=== PATIENT | female | born 2000 | race Caucasian/White ===

== ENCOUNTER 2022-09-11 23:34 | Emergency (ER) | payer OTHER, SELFPAY ==
--- NOTE | ~2022-09-11 | US_ITS ---
EXAMINATION: US PELVIS CLINICAL INFORMATION: Lower abdominal pain. Ovarian cyst. COMPARISON: 09/12/2022 TECHNIQUE: Ultrasound of the pelvis is performed using both transabdominal and transvaginal transducers along with Doppler. Transvaginal imaging is performed due to inadequate visualization transabdominally. FINDINGS: Uterus: The uterus is anteverted and measures 9.6 x 5 x 7.2 cm. The double wall endometrial thickness is [address] The uterus is smooth in contour and has normal myometrial echogenicity. No visible fibroid. Adnexa: Both ovaries are visualized. There is normal color flow to the adnexa. There is no ovarian torsion. Small volume of pelvic free fluid. Normal arterial and venous spectral waveforms are present bilaterally. Right ovary measures 3 x 1.7 x 1.5 cm. Left ovary measures 5.9 x 5.3 x 4.4 cm. Complex ovarian cyst measures 4.8 x 3.4 x 3.6 cm. Internal echoes are present. US/US pelvic and transvaginal IMPRESSION: No evidence of active ovarian torsion at this time. There is a complex left ovarian cyst which may represent a hemorrhagic cyst. Small volume of pelvic free fluid. No specific follow-up recommended.
--- NOTE | ~2022-09-11 | CT_ITS ---
EXAMINATION: CT ABDOMEN AND PELVIS WITHOUT CONTRAST CLINICAL INFORMATION: Diffuse abdominal pain. COMPARISON: None available. TECHNIQUE: Multidetector volumetric imaging was performed from the superior aspect of the liver through the pubic symphysis. Sagittal and coronal reformatted images were obtained on the technologist's workstation. This CT examination was performed using dose optimization techniques as appropriate, variously including the following: *Automated exposure control *Adjustment of mA and/or kV according to patient size (this includes techniques or standardized protocols for targeted exams where dose is matched to indication/reason for exam; i.e. extremities or head) *Use of iterative reconstruction technique DLP: 397 mGy-cm FINDINGS: LUNG BASES: The visualized lung bases are unremarkable. LIVER, GALLBLADDER, AND BILIARY TREE: The liver is normal in size, shape, and attenuation. No focal hepatic lesion or biliary ductal dilatation is present. The gallbladder is contracted with no evidence of radiopaque gallstones, gallbladder wall thickening, or obvious pericholecystic inflammatory changes. PANCREAS: Unremarkable. SPLEEN: Unremarkable. ADRENAL GLANDS: Unremarkable. KIDNEYS AND URETERS: The kidneys are normal in size, shape, and attenuation. No hydronephrosis, hydroureter, or calculi seen. No perinephric stranding. BLADDER: Unremarkable. GASTROINTESTINAL TRACT: The stomach is unremarkable. Normal caliber small bowel. No obstruction. Normal appendix. No colonic wall thickening. Mild inflammation in the pelvis this does not appear associated with the colon. No free air. ABDOMINAL WALL: No significant hernia is appreciated. LYMPH NODES: Normal. VASCULAR: Unremarkable. PELVIC VISCERA: Anteverted uterus with IUD in place. Inflammatory change in the pelvis with small amount of layering free fluid. There is a left adnexal 4.4 cm hypoattenuating lesion which measures higher than simple fluid. Layering high attenuation internally. OSSEOUS STRUCTURES: No acute or suspicious osseous abnormality. CT/CT abdomen pelvis wo IV con IMPRESSION: 1. Inflammatory changes in the pelvis with small amount of layering free fluid. There is a 4.4 cm hypoattenuating lesion in the left adnexa which measures higher than simple fluid. This could represent a hemorrhagic cyst. This could be further evaluated with pelvic ultrasound. 2. Otherwise no acute finding in the abdomen or pelvis. Fleischner guidelines were followed.
[2022-09-12 00:22] VITALS: BP 107/64; PULSE 83; RESP 16; TEMP 36.5; O2SAT 98; BMI 23.2
--- NOTE | 2022-09-12 00:42 | ED_ITS ---
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 Patient does not feel more anxious lately Related Data Previous Rx's Medication Instructions Recorded cefuroxime axetil 250 mg tablet 250 mg PO BID 7 days #14 tabs 09/12/22 ibuprofen 600 mg tablet 600 mg PO Q6H PRN fever or pain 09/12/22 #30 tabs Allergies Allergy/AdvReac Type Severity Reaction Status Date / Time No Known Allergies Allergy Verified 09/12/22 00:30 Review of Systems Review of Systems Yes all other systems are reviewed and are negative [facility] Past Medical History Attestation statement: The following information was validated with the patient. Social History Social History Alcohol intake: current Alcohol intake frequency: holidays/special occasions only Alcohol type: hard liquor Smoked in Last 30 Days: Yes Use of substances other than those prescribed or required for medical reasons: Yes Substance Use Type: Marijuana Substance Use Frequency: Socially Advance Directives: No Advance Directives Information Provided: Yes Patient : No Physical Exam ED Vital Signs: Vital Signs - 24 hr 09/12/22 00:22 Temperature 97.7 F Pulse Rate 83 Respiratory Rate 16 Blood Pressure 107/64 Pulse Oximetry 98 Oxygen Delivery Method Room Air BMI result Body Mass Index 23.2 Appearance: Alert. Oriented X3. No acute distress. Eyes: No pallor or icterus ENT: Pharynx normal. Oral Mucosa moist Neck: Normal inspection. Neck supple. CVS: Normal heart rate and rhythm. Pulses normal. Respiratory: No respiratory distress. Equal air entry bilateral, no wheezing/rales/rhonchi Abdomen: Soft mild tenderness left upper quadrant and suprapubic area no rebound tenderness or guarding Bowel sounds are present, no mass palpable, no CVA tenderness Skin: Skin warm and dry. Normal skin color. Normal skin turgor. Extremities: No lower extremity edema. No calf tenderness superficial lymph nodes left inguinal area no signs infection Neuro: Oriented X 3. No motor deficit. No sensory deficit.No cerebellar signs Medical Decision Making Medical Decision Making [facility] Narrative: Patient nonspecific abdominal pain for last 3 weeks likely IBS/ovarian cyst will give her Bentyl do the basics CT scan Patient's CT scan showed 4.5 cm left ovarian cyst likely hemorrhagic with free fluid in the pelvis. H&H stable will do ultrasound to confirm. Lab Data [facility] Lab Attestation statement: I reviewed the patient's lab results. 09/12/22 00:41 09/12/22 00:41 Labs: Lab Results 09/12/22 09/12/22 09/12/22 Range/Units 00:41 00:41 00:41 WBC 11.4 H (4.8-10.8) X10*3/uL RBC 3.65 L (4.20-5.50) X10*6/uL Hgb 11.0 L (12.0-16.0) g/dl Hct 32.8 L (37.0-47.0) % MCV 89.9 (80.0-98.0) fL MCH 30.1 (27.0-33.0) pg MCHC 33.5 (31.0-35.0) g/dl RDW 12.0 (11.0-16.0) % Plt Count 220 (160-400) X10*3/uL MPV 9.3 L (9.4-12.3) fL Immature Gran % (Auto) 0.4 (0.0-0.4) % Neut % (Auto) 67.0 (45-73) % Lymph % (Auto) 22.3 (20-40) % Rowan % (Auto) 7.7 (2-11) % Eos % (Auto) 2.2 (0-4) % Baso % (Auto) 0.4 (0-2) % Lymph # (Auto) 2.6 (1.2-4.9) X10*3/uL Rowan # (Auto) 0.9 (0.1-1.2) X10*3/uL Eos # (Auto) 0.3 (0.0-0.4) X10*3/uL Baso # (Auto) 0.1 (0.0-0.2) X10*3/uL Abs Immat Gran (auto) 0.05 H (0.00-0.03) X10*3/uL Absolute Neuts (auto) 7.6 (2.0-8.3) x10*3/uL Absolute Nucleated RBC 0.000 (0.0-0.012) X10*3/uL Nucleated RBC % (auto) 0.0 (0.0-0.2) /100WBC Sodium 140 (135-145) mmol/L Potassium 3.8 (3.3-5.1) mmol/L Chloride 106 (96-108) mmol/L Carbon Dioxide 27 (22-29) mmol/L Anion Gap 11 L (12-20) BUN 11 (9-16) mg/dL Creatinine 0.80 (0.5-1.4) mg/dL Estim Creat Clear Calc 91.2 Estimated GFR > 60 Random Glucose 92 (60-115) mg/dL Calcium 8.3 L (8.4-10.2) mg/dL Total Bilirubin 0.2 (0.0-1.0) mg/dL AST 11 (5-31) U/L ALT 6 (0-31) U/L Alkaline Phosphatase 57 (39-117) U/L Total Protein 6.4 L (6.5-8.0) g/dL Albumin 3.3 L (3.5-5.0) g/dL Urine Color Yellow Urine Appearance Clear Urine pH 6.0 (5.0-9.0) Ur Specific [place] 1.025 (1.005-1.025) Urine Protein Negative (Neg-Trace) mg/dL Urine Glucose (UA) Negative (Negative) mg/dL Urine Ketones Negative (Negative) mg/dL Urine Blood Negative (Negative) Urine Nitrite Negative (Negative) Ur Leukocyte Esterase Trace H (Negative) Urine RBC 0-2 (0-2) /HPF Urine WBC 6-10 H (0-5) /HPF Ur Squamous Epith Cells 6-10 (0-2) /HPF Urine Bacteria 1+ (None Seen) Hyaline Casts 0-2 (0-2) /LPF Urine Test (NEGATIVE) 09/12/22 Range/Units 00:41 WBC (4.8-10.8) X10*3/uL RBC (4.20-5.50) X10*6/uL Hgb (12.0-16.0) g/dl Hct (37.0-47.0) % MCV (80.0-98.0) fL MCH (27.0-33.0) pg MCHC (31.0-35.0) g/dl RDW (11.0-16.0) % Plt Count (160-400) X10*3/uL MPV (9.4-12.3) fL Immature Gran % (Auto) (0.0-0.4) % Neut % (Auto) (45-73) % Lymph % (Auto) (20-40) % Rowan % (Auto) (2-11) % Eos % (Auto) (0-4) % Baso % (Auto) (0-2) % Lymph # (Auto) (1.2-4.9) X10*3/uL Rowan # (Auto) (0.1-1.2) X10*3/uL Eos # (Auto) (0.0-0.4) X10*3/uL Baso # (Auto) (0.0-0.2) X10*3/uL Abs Immat Gran (auto) (0.00-0.03) X10*3/uL Absolute Neuts (auto) (2.0-8.3) x10*3/uL Absolute Nucleated RBC (0.0-0.012) X10*3/uL Nucleated RBC % (auto) (0.0-0.2) /100WBC Sodium (135-145) mmol/L Potassium (3.3-5.1) mmol/L Chloride (96-108) mmol/L Carbon Dioxide (22-29) mmol/L Anion Gap (12-20) BUN (9-16) mg/dL Creatinine (0.5-1.4) mg/dL Estim Creat Clear Calc Estimated GFR Random Glucose (60-115) mg/dL Calcium (8.4-10.2) mg/dL Total Bilirubin (0.0-1.0) mg/dL AST (5-31) U/L ALT (0-31) U/L Alkaline Phosphatase (39-117) U/L Total Protein (6.5-8.0) g/dL Albumin (3.5-5.0) g/dL Urine Color Urine Appearance Urine pH (5.0-9.0) Ur Specific [place] (1.005-1.025) Urine Protein (Neg-Trace) mg/dL Urine Glucose (UA) (Negative) mg/dL Urine Ketones (Negative) mg/dL Urine Blood (Negative) Urine Nitrite (Negative) Ur Leukocyte Esterase (Negative) Urine RBC (0-2) /HPF Urine WBC (0-5) /HPF Ur Squamous Epith Cells (0-2) /HPF Urine Bacteria (None Seen) Hyaline Casts (0-2) /LPF Urine Test NEGATIVE (NEGATIVE) Radiology Impression Discussion of test interpretation with radiology: I have reviewed the radiologist's reading. Radiologist Impression: RDER #: [id number] CT/CT abdomen pelvis wo IV con IMPRESSION: 1.? Inflammatory changes in the pelvis with small amount of layering free fluid. There is a 4.4 cm hypoattenuating lesion in the left adnexa which measures higher than simple fluid. This could represent a hemorrhagic cyst. This could be further evaluated with pelvic ultrasound. 2.? Otherwise no acute finding in the abdomen or pelvis. ? Fleischner guidelines were followed. Medications Administered Discontinued Medications Generic Name Dose Route Start Last Admin Trade Name Freq PRN Reason Stop Dose Admin Dicyclomine HCl 20 mg 09/12/22 00:55 09/12/22 01:20 Dicyclomine Hcl 10 Mg Capsule PO 09/12/22 00:56 20 mg ONCE ONE Administration Discharge Plan Discharge Clinical Impression: Ovarian cyst, UTI (urinary tract infection) Patient Disposition: Still a Patient Instructions: Ovarian Cyst (ED), Urinary Tract Infection in Women (DC) Additional Instructions: Drink plenty of fluids Ibuprofen for pain Follow-up with seat trimmer if pain continues or gets worse Prescriptions: New cefuroxime axetil 250 mg tablet 250 mg PO BID 7 Days Qty: 14 0RF ibuprofen 600 mg tablet 600 mg PO Q6H PRN (Reason: fever or pain) Qty: 30 0RF
[2022-09-12 00:46] LABS: MANUAL DIFF FLAG NO
[2022-09-12 00:47] LABS: Basophils Absolute Auto 0.1 X10*3/uL (0.0-0.2); Basophils Percent Auto 0.4 % (0-2); Eosinophils Absolute Auto 0.3 X10*3/uL (0.0-0.4); Eosinophils Percent Auto 2.2 % (0-4); Hematocrit 32.8 % (37.0-47.0); Imm Gran Abs Auto 0.05 X10*3/uL (0.00-0.03); Imm Gran Pct Auto 0.4 % (0.0-0.4); Lymphocytes Absolute Auto 2.6 X10*3/uL (1.2-4.9); Lymphocytes Percent Auto 22.3 % (20-40); Mean Corpuscular HGB Conc 33.5 g/dl (31.0-35.0); Mean Corpuscular Hemoglobin 30.1 pg (27.0-33.0); Mean Corpuscular Volume 89.9 fL (80.0-98.0); Mean Platelet Volume 9.3 fL (9.4-12.3); Monocytes Absolute Auto 0.9 X10*3/uL (0.1-1.2); Monocytes Percent Auto 7.7 % (2-11); Neutrophils Absolute Auto 7.6 x10*3/uL (2.0-8.3); Platelet Count 220 X10*3/uL (160-400); Red Blood Count 3.65 X10*6/uL (4.20-5.50); SCAN SMEAR FLAG 1; White Blood Count 11.4 X10*3/uL (4.8-10.8)
[2022-09-12 00:48] LABS: Appearance Urine Clear; Color Urine Yellow; Glucose Urine UA Negative (Negative); Leukocyte Esterase Urine Trace (Negative); Nitrite Urine Negative (Negative); Specific Gravity - Urine 1.025 (1.005-1.025); UMIC TRIGGER UACC YES; Urine Blood Negative (Negative); Urine Ketones Negative (Negative); Urine Protein Negative (Neg-Trace)
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
--- OUTSIDE RECORDS SUMMARY | 2022-09-12 00:49 | XMS_ITS | Continuity of Care Document ---
Author Name Unknown Organization [facility] Address [address] [place] [address]- Care Team Providers Care Material Movers Name Role Phone Not on Staff, PCP Primary Care Physician Unavail able Encounter [facility] Date(s): 10/01/20 - 10/31/20 [facility] [address] [address]- Allergies, Adverse Reactions, Alerts Substance Reaction Severity [...]
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
--- OUTSIDE RECORDS SUMMARY | 2022-09-12 00:49 | XMS_ITS | Continuity of Care Document ---
Author Name Unknown Organization [facility] Address [address] [place] [address]- Care Team Providers Care Environmental Inspector Name Role Phone Not on Staff, PCP Primary Care Physician Unavail able [facility]): 07/24/20 - 08/23/20 [facility] [address] [address]- Attending Physician: Angeli Kirkpatrick Admitting Physician: AdmAngeli aparicio Referring Physician: AdmtrAngeli Allergies, Adverse Reactions, Alerts [...] 0 Refills, Maintenance, 07/13/19 12:43:00 EST, Tablet, [facility]/pharmacy #[id number], 1 tablet By Mouth Daily, 160, cm, 07/13/19 12:29:00 EST, Height, 82.5, kg, 03/23/19 10:51:00 EDT, Dry Weight Start Date: 07/13/19 Status: Ordered Multivitamins with Folic Acid 1 mg oral tablet 1 tablet, By Mouth, Daily, # 90 tablet, 3 Refills, Maintenance, 07/09/20 17:07:00 EST, Tablet, [facility]/pharmacy #[id number], Partial fill upon patient request if the prescription is for a schedule II opioid drug., 1 tablet By Mouth Daily, 160, cm, 05/16/20 9:41... Start Date: 07/09/20 Status: Ordered Multivitamins with Folic Acid 1 [...]
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
--- OUTSIDE RECORDS SUMMARY | 2022-09-12 00:49 | XMS_ITS | Continuity of Care Document ---
Author Name Unknown Organization [facility] Address Unknown Care Team Providers Care Child Nutrition Director Name Role Phone Not on Staff, PCP Primary Care Physician Unavail able [place] [facility] [place] 12/15/20 - 02/25/21 [facility] Attending Physician: Eufemia Duval NP Admitting Physician: Eufemia Duval NP Allergies, Adverse Reactions, Alerts Substance Reaction Severity Status NKA Active Immunizations Given and Recorded Vaccine Date Status Refusal Reason SARS-CoV-2 (COVID-19) [id number] vaccine 02/25/21 G iven tetanus/diphtheria/pertussis, acel(Tdap) 01/21/21 [...] tablet, 1 Refills, Maintenance, 08/25/20 14:50:00 EDT, [facility]/pharmacy #[id number], Partial fill upon patient request if the prescription is for a schedule II opioid drug., 160, cm, 08/25/20 14:13:00 EDT, Height,... Start Date: 08/25/20 Status: Ordered ferrous sulfate 325 mg oral enteric coated tablet 325 mg, 1, tablet, By Mouth, Daily, # 90 tablet, Refills 1, Tot. Refills 1, Maintenance, 02/04/21 13:19:00 EDT, Route to Pharmacy Electronically, [facility]/pharmacy #[id number], Partial fill upon patient requestif the prescription is for a schedule II opioid rommel... Start Date: 02/04/21 Status: Ordered Multivitamins with Folic Acid 1 mg oral tablet 1 tablet, By Mouth, Daily, # 30 tablet, 8 Refills, Maintenance, 02/04/21 13:19:00 EDT, Tablet, [facility]/pharmacy #[id number], Partial fill upon patient request [...]
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
--- OUTSIDE RECORDS SUMMARY | 2022-09-12 00:49 | XMS_ITS | Continuity of Care Document ---
Author Name Unknown Organization [facility] ter Address [address] [place] [address]- Care Team Providers Care Lacemaker Name Role Phone Not on Staff, PCP Primary Care Physician Unavail able [facility]s): 02/12/21 - 02/14/[address] [address]- Discharge Disposition: A-D/C Home Attending Physician: Jayesh ALBERT [OB], Gabbi Stephens Admitting Physician: Jayesh ALBERT [OB]Gabbi Referring Physician: Jayesh ALBERT [OB]Gabbi Allergies, Adverse Reactions, Alerts Substance Reaction Severity [...] tablet, 1 Refills, Maintenance, 08/25/20 14:50:00 EDT, [facility]/pharmacy #[id number], Partial fill upon patient request if the prescription is for a schedule II opioid drug., 160, cm, 08/25/20 14:13:00 EDT, Height,... Start Date: 08/25/20 Status: Ordered ferrous sulfate 325 mg oral enteric coated tablet 325 mg, 1, tablet, By Mouth, Daily, # 90 tablet, Refills 1, Tot. Refills 1, Maintenance, 02/04/21 13:19:00 EDT, Route to Pharmacy Electronically, [facility]/pharmacy #[id number], Partial fill upon patient requestif the prescription is for a schedule II opioid rommel... Start Date: 02/04/21 Status: Ordered Multivitamins with Folic Acid 1 mg oral tablet 1 tablet, By Mouth, Daily, # 30 tablet, 8 Refills, Maintenance, 02/04/21 13:19:00 EDT, Tablet, [id number], Partial fill upon patient request if the [...] is now living with her biological father. Results Orders for Microbiology Reports Name Date Urine Culture (Culture Urine) 02/12/21 Microbiology Reports TEST:Urine Culture STATUS:Auth (Verified) BODY SITE: SOURCE:URINE COLLECTED DATE/TIME:02/12/21 7:35 PM Urine Culture SPECIMEN DESCRIPTION : URINE CLEAN CATCH/MIDSTREAM SPECIAL REQUESTS : NONE CULTURE : Mixed bacterial morgan, indicative of urogenital contamination. REPORT STATUS : FINAL 02/14/2021 Vital Signs Most recent to oldest [Reference Range]: 1 2 3 Height 160 cm (02/12/21 11:58 PM) 160 cm (02/12/21 6:05 PM) Weight 75.3 kg (02/12/21 11:58 PM) 75.3 kg (02/12/21 5:58 PM) Oxygen Saturation [94-100 %] 97 % (02/14/21 1:23 AM) 98 % (02/13/21 11:00 PM) 99 % (02/13/21 5:11 PM) Pulse Rate [55-90 bpm] 69 bpm (02/12/21 11:58 PM) 69 bpm (02/12/21 6:05 PM) Body Mass Index [18.5-24.99] 29.41 *H* (02/12/21 11:58 PM) Blood Pressure [90-138/55-84 mm Hg] 109/65mm Hg (9/18/21 7:41 AM) 114/65mm Hg (02/14/21 1:23 AM) 126/65mm Hg (02/13/21 11:00 PM) Respiratory Rate [16-30 br/min] 18 br/min (02/13/21 11:00 PM) 16 br/min (02/13/21 11:01 AM) 18 br/min (02/13/21 7:20 AM) Temperature [96.8-100.4 DegF] 98.1 DegF (02/14/21 7:41 AM) 98.1 DegF (02/14/21 1:23 AM) 98.7 DegF (02/13/21 11:00 PM) Mode of Delivery (Oxygen) Room air (02/13/21 11:00 PM) Room air (02/13/21 7:20 AM) Blood pressure sites Arm, right (02/13/21 5:11 PM) Arm, right (02/13/21 11:01 AM) Arm, right (02/13/21 7:20 AM) Temperature Route Oral (02/14/21 7:41 AM) Oral (02/14/21 1:23 AM) Oral (02/13/21 11:00 PM) Dry Weight 75.3 kg (02/12/21 11:58 PM) 75.3 kg (02/12/21 5:58 PM) Weight Obtained Via Standing scale (02/12/21 5:58 PM) Dry Weight Obtained Via Standing scale (02/12/21 5:58 PM) Social History Social History Type Response Smoking Status Never (less than 100 in lifetime) entered on: 07/24/20 Sex Female
--- OUTSIDE RECORDS SUMMARY | 2022-09-12 00:49 | XMS_ITS | Continuity of Care Document ---
Author Name Unknown Organization [facility] Address [address] [place] [address]- Care Team Providers Care Nurse Head Name Role Phone Not on Staff, PCP Primary Care Physician Unavail able [facility]s): 12/04/20 - 01/03/21 [facility]/[address] [address] Allergies, Adverse Reactions, Alerts Substance Reaction Severity [...] tablet, 1 Refills, Maintenance, 08/25/20 14:50:00 EDT, [facility]/pharmacy #[id number], Partial fill upon patient request if the prescription is for a schedule II opioid drug., 160, cm, 08/25/20 14:13:00 EDT, Height,... Start Date: 08/25/20 Status: Ordered ferrous sulfate 325 mg oral enteric coated tablet 325 mg, 1, tablet, By Mouth, Daily, # 90 tablet, Refills 1, Tot. Refills 1, Maintenance, 01/01/21 12:53:00 EDT, Route to Pharmacy Electronically, [facility]/pharmacy #[id number], Partial fill upon patient [...] 8 Refills, Maintenance, 10/06/20 13:25:00 EDT, Tablet, [facility]/pharmacy #[id number], Partial fill upon patient [...]
--- OUTSIDE RECORDS SUMMARY | 2022-09-12 00:49 | XMS_ITS | Continuity of Care Document ---
Author Name Unknown Organization [facility] Address [address] [place] [address]- Care Team Providers Care Optomechanical Technician Name Role Phone Not on Staff, PCP Primary Care Physician Unavail able [facility]s): 03/02/21 - 04/11/[address] [address]- Attending Physician: Not on Staff, Attending MD Allergies, Adverse Reactions, Alerts Substance Reaction Severity Status NKA Active Immunizations Given and Recorded Vaccine Date Status Refusal Reason influenza virus vaccine, inactivated 02/26/21 Give n influenza virus vaccine, inactivated 02/14/19 Give n influenza virus vaccine, inactivated 1 03/30/12 Gi dana SARS-CoV-2 (COVID-19) mRNA-2757 vaccine 02/25/21 G iven tetanus/diphtheria/pertussis, acel(Tdap) 01/21/21 [...] tablet, 1 Refills, Maintenance, 08/25/20 14:50:00 EDT, [facility]/pharmacy #[id number], Partial fill upon patient request if the prescription is for a schedule II opioid drug., 160, cm, 08/25/20 14:13:00 EDT, Height,... Start Date: 08/25/20 Status: Ordered ferrous sulfate 325 mg oral enteric coated tablet 325 mg, 1, tablet, By Mouth, Daily, # 90 tablet, Refills 1, Tot. Refills 1, Maintenance, 02/04/21 13:19:00 EDT, Route to Pharmacy Electronically, [facility]/pharmacy #[id number], Partial fill upon patient requestif the prescription is for a schedule II opioid rommel... Start Date: 02/04/21 Status: Ordered Multivitamins with Folic Acid 1 mg oral tablet 1 tablet, By Mouth, Daily, # 30 tablet, 8 Refills, Maintenance, 02/04/21 13:19:00 EDT, Tablet, [facility]/pharmacy #[id number], Partial fill upon patient request if the [...]
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
--- OUTSIDE RECORDS SUMMARY | 2022-09-12 00:49 | XMS_ITS | Continuity of Care Document ---
Author Name Unknown Organization [facility] Address [address] [place] [address]- Care Team Providers Care Area Plant Manager Name Role Phone Not on Staff, PCP Primary Care Physician Unavail able [facility]counter [facility] Date(s): 10/21/20 - 11/21/20 [facility] [address] [address]- Attending Physician: Mery Mohamud CNM Admitting Physician: [...] 1 Refills, Maintenance, 08/25/20 14:50:00 EDT, [facility]/pharmacy #[id number], Partial fill upon patient request if [...]
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
--- OUTSIDE RECORDS SUMMARY | 2022-09-12 00:49 | XMS_ITS | Continuity of Care Document ---
Author Name Unknown Organization [facility] Address [address] [place] [address]- Care Team Providers Care Packaging Line Attendant Name Role Phone Not on Staff, PCP Primary Care Physician Unavail able [facility]counter [facility] Date(s): 10/20/20 - 11/19/20 [facility] [address] [address]- Allergies, Adverse Reactions, Alerts Substance Reaction Severity [...]
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
[2022-09-12 00:50] LABS: UPreg QC Valid YES; Urine Pregnancy NEGATIVE (NEGATIVE)
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
--- OUTSIDE RECORDS SUMMARY | 2022-09-12 00:50 | XMS_ITS | Continuity of Care Document ---
Author Name Unknown Organization [facility] Address Unknown Care Team Providers Care Sole Polisher Name Role Phone Not on Staff, PCP Primary Care Physician Unavail able [facility]counter [facility] Date(s): 04/01/21 - 05/27/21 [facility] Attending Physician: Lauren Mariee MD Admitting Physician: Lauren Mariee MD Allergies, Adverse Reactions, Alerts Substance Reaction [...] tablet, 1 Refills, Maintenance, 08/25/20 14:50:00 EDT, [facility]/pharmacy #[id number], Partial fill upon patient request if the prescription is for a schedule II opioid drug., 160, cm, 08/25/20 14:13:00 EDT, Height,... Start Date: 08/25/20 Status: Ordered ferrous sulfate 325 mg oral enteric coated tablet 325 mg, 1, tablet, By Mouth, Daily, # 90 tablet, Refills 1, Tot. Refills 1, Maintenance, 02/04/21 13:19:00 EDT, Route to Pharmacy Electronically, [facility]/pharmacy #[id number], Partial fill upon patient requestif the prescription is for a schedule II opioid rommel... Start Date: 02/04/21 Status: Ordered Multivitamins with Folic Acid 1 mg oral tablet 1 tablet, By Mouth, Daily, # 30 tablet, 8 Refills, Maintenance, 02/04/21 13:19:00 EDT, Tablet, [facility]/pharmacy #[id number], Partial fill upon patient [...]
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
--- OUTSIDE RECORDS SUMMARY | 2022-09-12 00:50 | XMS_ITS | Continuity of Care Document ---
Author Name Unknown Organization [facility] Address [address] [place] [address]- Care Team Providers Care Client Experience Specialist Name Role Phone Not on Staff, PCP Primary Care Physician Unavail able [facility]counter [facility] Date(s): 11/04/20 - 12/04/[facility] [address] [place] [id number] Allergies, Adverse Reactions, Alerts Substance [...]
--- OUTSIDE RECORDS SUMMARY | 2022-09-12 00:50 | XMS_ITS | Continuity of Care Document ---
Author Name Unknown Organization [facility] Address [address] [place] [address]- Care Team Providers Care Washer Repairman Name Role Phone Not on Staff, PCP Primary Care Physician Unavail able Encounter [facility] Date(s): 10/06/20 - 11/05/20 [facility] [address] [address]- Allergies, Adverse Reactions, Alerts Substance Reaction Severity [...]
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
--- OUTSIDE RECORDS SUMMARY | 2022-09-12 00:50 | XMS_ITS | Continuity of Care Document ---
Author Name Unknown Organization [facility] Address [address] [place] [address]- Care Team Providers Care Fitness Professional Name Role Phone Not on Staff, PCP Primary Care Physician Unavail able Encounter [facility] Date(s): 02/12/21 - 03/14/21 [facility] [address] [place], [place] [address] Allergies, Adverse Reactions, Alerts Substance Reaction Severity Status NKA Active Immunizations Given and Recorded Vaccine Date Status Refusal Reason influenza virus vaccine, inactivated 02/26/21 Give n influenza virus vaccine, inactivated 02/14/19 Give n influenza virus vaccine, inactivated 1 03/30/12 Gi dana SARS-CoV-2 (COVID-19) [id number] vaccine 02/25/21 G iven tetanus/diphtheria/pertussis, acel(Tdap) 01/21/21 [...] Refills, Maintenance, 08/25/20 14:50:00 EDT, [facility]/pharmacy #[id number], Partial fill upon patient request if the prescription is for a schedule II opioid drug., 160, cm, 08/25/20 14:13:00 EDT, Height,... Start Date: 08/25/20 Status: Ordered ferrous sulfate 325 mg oral enteric coated tablet 325 mg, 1, tablet, By Mouth, Daily, # 90 tablet, Refills 1, Tot. Refills 1, Maintenance, 02/04/21 13:19:00 EDT, Route to Pharmacy Electronically, [facility]/pharmacy #[id number], Partial fill upon patient requestif the prescription is for a schedule II opioid rommel... Start Date: 02/04/21 Status: Ordered Multivitamins with Folic Acid 1 mg oral tablet 1 tablet, By Mouth, Daily, # 30 tablet, 8 Refills, Maintenance, 02/04/21 13:19:00 EDT, Tablet, [facility]/pharmacy #[id number], Partial fill upon patient request if the [...]
--- OUTSIDE RECORDS SUMMARY | 2022-09-12 00:50 | XMS_ITS | Continuity of Care Document ---
Author Name Unknown Organization [facility] Address Unknown Care Team Providers Care Mixed Crop And Livestock Farmer Name Role Phone Not on Staff, PCP Primary Care Physician Unavail able [facility]counter [facility] Date(s): 04/27/21 - 05/27/21 [facility] Attending Physician: Angeli Kirkpatrick Admitting Physician: Angeli [...] 1 Refills, Maintenance, 08/25/20 14:50:00 EDT, [facility]/pharmacy #[id number], Partial fill upon patient request if the prescription is for a schedule II opioid drug., 160, cm, 08/25/20 14:13:00 EDT, Height,... Start Date: 08/25/20 Status: Ordered ferrous sulfate 325 mg oral enteric coated tablet 325 mg, 1, tablet, By Mouth, Daily, # 90 tablet, Refills 1, Tot. Refills 1, Maintenance, 02/04/21 13:19:00 EDT, Route to Pharmacy Electronically, [facility]/pharmacy #[id number], Partial fill upon patient requestif the prescription is for a schedule II opioid rommel... Start Date: 02/04/21 Status: Ordered Multivitamins with Folic Acid 1 mg oral tablet 1 tablet, By Mouth, Daily, # 30 tablet, 8 Refills, Maintenance, 02/04/21 13:19:00 EDT, Tablet, [id number], Partial fill upon patient request if the [...]
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
--- OUTSIDE RECORDS SUMMARY | 2022-09-12 00:50 | XMS_ITS | Continuity of Care Document ---
Author Name Unknown Organization [facility] Address [address] [place] [phone]- Care Team Providers Care Casey Saw Operator Name Role Phone Not on Staff, PCP Primary Care Physician Unavail able [facility] - 08/20/20 [facility] [address] [address] Allergies, Adverse Reactions, Alerts Substance [...] 0 Refills, Maintenance, 07/13/19 12:43:00 EST, Tablet, [facility]/pharmacy #[id number], 1 tablet By Mouth Daily, 160, cm, 07/13/19 12:29:00 EST, Height, 82.5, kg, 03/23/19 10:51:00 EDT, Dry Weight Start Date: 07/13/19 Status: Ordered Multivitamins with Folic Acid 1 mg oral tablet 1 tablet, By Mouth, Daily, # 90 tablet, 3 Refills, Maintenance, 07/09/20 17:07:00 EST, Tablet, [facility]/pharmacy #[id number], Partial fill upon patient request if [...]
--- OUTSIDE RECORDS SUMMARY | 2022-09-12 00:50 | XMS_ITS | Continuity of Care Document ---
Author Name Unknown Organization [facility] Address [address] [place] [address]- Care Team Providers Care Waitstaff Name Role Phone Not on Staff, PCP Primary Care Physician Unavail able [facility] Date[facility]s): 10/14/20 - 11/19/[address] [address]- Attending Physician: Rama Rice MD Admitting Physician: Rama Rice MD Referring Physician: Nadira Vidales NP Allergies, Adverse [...] tablet, 1 Refills, Maintenance, 08/25/20 14:50:00 EDT, [facility]/pharmacy #[id number], Partial fill upon patient [...] 8 Refills, Maintenance, 10/06/20 13:25:00 EDT, Tablet, [facility]/pharmacy #[id number], Partial fill upon patient [...]
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
--- OUTSIDE RECORDS SUMMARY | 2022-09-12 00:50 | XMS_ITS | Continuity of Care Document ---
Author Name Unknown Organization [facility] Address [address] [place] [phone]- Care Team Providers Care Integration Lead Name Role Phone Not on Staff, PCP Primary Care Physician Unavail able [facility]): 08/25/20 - 10/22/20 [facility] [address] [address]- Attending Physician: Not on Staff, Attending MD [...] tablet, 1 Refills, Maintenance, 08/25/20 14:50:00 EDT, [facility]/pharmacy #[id number], Partial fill upon patient [...]
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
--- OUTSIDE RECORDS SUMMARY | 2022-09-12 00:50 | XMS_ITS | Continuity of Care Document ---
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 Phone Not on Staff, PCP Primary Care Physician Unavail able [facility]s): 01/20/22 - 02/19/[address] [address]- Attending Physician: Angeli Kirkpatrick Admitting Physician: AdmAngeli aparicio Referring Physician: Admtr ArMaritza Allergies, Adverse Reactions, Alerts No Known Allergies Immunizations Given and Recorded Vaccine Date Status Refusal Reason influenza virus vaccine, inactivated 02/26/21 Give n influenza virus vaccine, inactivated 02/14/19 Give n influenza virus vaccine, inactivated 1 03/30/12 Gi dana SARS-CoV-2 (COVID-19) [id number] vaccine 02/25/21 G iven tetanus/diphtheria/pertussis, acel(Tdap) 01/21/21 [...] Refills, Maintenance, 08/25/20 14:50:00 EDT, [facility]/pharmacy #[id number], Partial fill upon patient request if the prescription is for a schedule II opioid drug., 160, cm, 08/25/20 14:13:00 EDT, Height,... Start Date: 08/25/20 Status: Ordered ferrous sulfate 325 mg oral enteric coated tablet 325 mg, 1, tablet, By Mouth, Daily, # 90 tablet, Refills 1, Tot. Refills 1, Maintenance, 02/04/21 13:19:00 EDT, Route to Pharmacy Electronically, [facility]/pharmacy #[id number], Partial fill upon patient requestif the prescription is for a schedule II opioid rommel... Start Date: 02/04/21 Status: Ordered Multivitamins with Folic Acid 1 mg oral tablet 1 tablet, By Mouth, Daily, # 30 tablet, 8 Refills, Maintenance, 02/04/21 13:19:00 EDT, Tablet, [id number], Partial fill upon patient request if the [...]
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
[2022-09-12 00:53] LABS: Bacteria Urine 1+ (None Seen); Hyaline Casts Urine 0-2 /LPF (0-2); RBC Urine 0-2 /HPF (0-2); UACC Culture Trigger YES
[2022-09-12 01:10] LABS: Alanine Aminotransferase 6 U/L (0-31); Albumin Level 3.3 g/dL (3.5-5.0); Alkaline Phosphatase 57 U/L (39-117); Anion Gap 11 (12-20); Aspartate Amino Transferase 11 U/L (5-31); Bilirubin Total 0.2 mg/dL (0.0-1.0); Blood Urea Nitrogen 11 mg/dL (9-16); Calcium 8.3 mg/dL (8.4-10.2); Carbon Dioxide 27 mmol/L (22-29); Chloride 106 mmol/L (96-108); Creatinine Clr Calc Pharmacy 91.2; Estimated Glomerular Filt Rate > 60; Glucose Random 92 mg/dL (60-115); Potassium 3.8 mmol/L (3.3-5.1); Sodium 140 mmol/L (135-145); Total Protein 6.4 g/dL (6.5-8.0)
[2022-09-12] MEDS: Dicyclomine HCl 10 MG CAPSULE 20 MG PO (01:20)
--- NOTE | 2022-09-12 02:13 | PC.NURSE ---
Pt A&Ox4, reports 8/10 constant LLQ pain. States it feels very uncomfortable, stabbing and cramping, with some nausea today . Reports last BM today, and pressure with urination. Tender to touch to LLQ, lump felt, + bowel sounds x 4 quadrants.
[2022-09-12] MEDS: Ibuprofen 600 MG TABLET PO (02:17)
[2022-09-12] MEDS: Morphine Sulfate Immed Release 15 MG TABLET PO (02:58)
== END 2022-09-12 03:09 | disposition still patient (30) ==
PROVIDERS: Internal Medicine; Emergency Provider Emergency Medicine Emergency Medical Services; PCP Internal Medicine
DX: N39.0 Urinary tract infection, site not specified (principal); N83.209 Unspecified ovarian cyst, unspecified side; R10.2 Pelvic and perineal pain; Z79.899 Other long term (current) drug therapy
CPT/HCPCS: 36415; 74176; 76830; 76856; 80053; 81001; 81025; 85025; 87086; 99284

== ENCOUNTER 2022-09-26 16:32 | Emergency (ER) | payer OTHER, SELFPAY ==
--- NOTE | ~2022-09-26 | US_ITS ---
EXAMINATION: US PELVIS CLINICAL INFORMATION: Left ovarian cyst COMPARISON: 09/12/2022 TECHNIQUE: Ultrasound of the pelvis is performed using both transabdominal and transvaginal transducers along with Doppler. Transvaginal imaging is performed due to inadequate visualization transabdominally. FINDINGS: Uterus: The uterus is anteverted and measures 8.4 x 3.3 x 5.4 cm. No focal myometrial lesion. IUD in place. No endometrial fluid or abnormality. No migration. The uterus is smooth in contour and has normal myometrial echogenicity. No visible fibroid. Adnexa: Both ovaries are visualized. There is normal color flow to the adnexa. There is no ovarian torsion. There is no pelvic ascites or fluid collection. Resolution of previous dominant left ovarian complex cyst. Small 18 mm is presently current study which is likely physiologic. US/US pelvic ovarian doppler IMPRESSION: No suspicious findings. IUD in place. Resolution of previous dominant left ovarian cyst.
--- NOTE | ~2022-09-26 | US_ITS ---
EXAMINATION: US PELVIS CLINICAL INFORMATION: Left ovarian cyst COMPARISON: 09/12/2022 TECHNIQUE: Ultrasound of the pelvis is performed using both transabdominal and transvaginal transducers along with Doppler. Transvaginal imaging is performed due to inadequate visualization transabdominally. FINDINGS: Uterus: The uterus is anteverted and measures 8.4 x 3.3 x 5.4 cm. No focal myometrial lesion. IUD in place. No endometrial fluid or abnormality. No migration. The uterus is smooth in contour and has normal myometrial echogenicity. No visible fibroid. Adnexa: Both ovaries are visualized. There is normal color flow to the adnexa. There is no ovarian torsion. There is no pelvic ascites or fluid collection. Resolution of previous dominant left ovarian complex cyst. Small 18 mm is presently current study which is likely physiologic. US/US pelvic and transvaginal IMPRESSION: No suspicious findings. IUD in place. Resolution of previous dominant left ovarian cyst.
[2022-09-26 16:57] VITALS: BP 130/81; PULSE 85; RESP 22; TEMP 36.7; O2SAT 100; BMI 23.2
--- NOTE | 2022-09-26 17:03 | ED.GENADULT ---
HPI - General Adult General Chief complaint: Abdominal Pain <JAMEL Gomes - Last Filed: 09/28/22 13:09> Stated complaint: vomiting/abd pain/weakness <JAMEL Gomes - Last Filed: 09/28/22 13:09> Time Seen by Provider: 09/26/22 20:14 <JAMEL Gomes - Last Filed: 09/28/22 13:09> Source: patient <Aiyana Berman MD - Last Filed: 09/26/22 22:43> Mode of arrival: ambulatory <Aiyana Berman MD - Last Filed: 09/26/22 22:43> History of Present Illness HPI narrative: 21-year-old female who presents with left-sided abdominal discomfort with associated nausea or vomiting since this morning. She denies any fevers or chills and denies any urinary symptoms. <Aiyana Berman MD - Last Filed: 09/26/22 22:43> Related Data Home medications: Previous Rx's Medication Instructions Recorded cefuroxime axetil 250 mg tablet 250 mg PO BID 7 days #14 tabs 09/12/22 ibuprofen 600 mg tablet 600 mg PO Q6H PRN fever or pain 09/12/22 #30 tabs morphine 15 mg immediate release 15 mg PO Q4-6H PRN pain #14 tabs 09/12/22 tablet ondansetron HCl 4 mg tablet 4 mg PO Q8H PRN nausea and 09/26/22 vomiting 4 days #10 tabs <JAMEL Gomes - Last Filed: 09/28/22 13:09> Allergies/adverse reactions: Allergies Allergy/AdvReac Type Severity Reaction Status Date / Time No Known Allergies Allergy Verified 09/12/22 00:30 <JAMEL Gomes - Last Filed: 09/28/22 13:09> Review of Systems Review of Systems: Pertinent positives and negatives as stated in HPI <Aiyana Berman MD - Last Filed: 09/26/22 22:43> PMFSH Past Medical History Source: nursing notes reviewed <Aiyana Berman MD - Last Filed: 09/26/22 22:43> Social History Social History: Social History Alcohol intake: never Smoked in Last 30 Days: Yes Use of substances other than those prescribed or required for medical reasons: Yes Substance Use Type: Marijuana Advance Directives: No Advance Directives Information Provided: No Patient : No <JAMEL Gomes - Last Filed: 09/28/22 13:09> Physical Exam ED Vital Signs: Vital Signs - 24 hr 09/26/22 16:57 09/26/22 22:01 Temperature 98.0 F 98.2 F Pulse Rate 85 64 Respiratory Rate 22 H 16 Blood Pressure 130/81 118/76 Pulse Oximetry 100 97 Oxygen Delivery Method Room Air Room Air BMI result Body Mass Index 23.2 <JAMEL Gomes - Last Filed: 09/28/22 13:09> Vital Signs - 24 hr 09/26/22 16:57 09/26/22 22:01 Temperature 98.0 F 98.2 F Pulse Rate 85 64 Respiratory Rate 22 H 16 Blood Pressure 130/81 118/76 Pulse Oximetry 100 97 Oxygen Delivery Method Room Air Room Air BMI result Body Mass Index 23.2 VITAL SIGNS: Reviewed. GENERAL: Well developed, well nourished, in no acute distress. HEAD: Normocephalic/atraumatic EYES: PERRLA, EOMI EARS: Ext canals without abnormality LUNGS: Normal breath sounds. No adventitious sounds or accessory muscle use. SpO2<97> CARDIOVASCULAR: Regular rate and rhythm without noted murmurs ABDOMEN: Soft, non-tender, non-distended with bowel sounds. MUSCULOSKELETAL: No tenderness, deformities, or effusions noted on gross inspection. EXTREMITIES: No cyanosis, clubbing or edema. SKIN: Inspection of the skin reveals no rashes NEUROLOGIC: Alert and oriented x 4. Strength and sensation to light touch were grossly intact x 4. <Aiyana Berman MD - Last Filed: 09/26/22 22:43> Course Course Course Narrative: RME: 21 yold female presents to the ED for sudden left lower qaudrant/suprapuic pain with mulitple episoded of vomitting. Patient recent diagnosed with ovarian cysts and infromed to return to the ED to rule out ovarian torsions. patient distress. NUrse scott spoke with charge nurse to exepdite patient to receive a bed to rule out torsions. labs, uS ordered <JAMEL Gomes - Last Filed: 09/28/22 13:09> Medications Administered Discontinued Medications Generic Name Dose Route Start Last Admin Trade Name Freq PRN Reason Stop Dose Admin Ondansetron HCl 4 mg 09/26/22 20:59 09/26/22 21:35 Ondansetron Odt 4 Mg Tab.Rapdis TRANSLINGU 09/26/22 21:00 4 mg ONCE ONE Administration <JAMEL Gomes - Last Filed: 09/28/22 13:09> Medications Administered Discontinued Medications Generic Name Dose Route Start Last Admin Trade Name Freq PRN Reason Stop Dose Admin Ondansetron HCl 4 mg 09/26/22 20:59 09/26/22 21:35 Ondansetron Odt 4 Mg Tab.Rapdis TRANSLINGU 09/26/22 21:00 4 mg ONCE ONE Administration <Aiyana Berman MD - Last Filed: 09/26/22 22:43> Medical Decision Making Medical Decision Making MDM Narrative: 21-year-old female with history and clinical presentation suggestive of possible ruptured ovarian cyst. I reviewed all investigations and my interpretation is this patient likely has a mild gastroenteritis and suspect stress leukocytosis due to nausea and vomiting and may have a component of gastroenteritis. She was provided with Zofran hand is tolerating oral intake at this time. Who be discharged with some Zofran and instructions to continue to rehydrate. <Aiyana Berman MD - Last Filed: 09/26/22 22:43> Differential Diagnosis Please see the discussion above <Aiyana Berman MD - Last Filed: 09/26/22 22:43> Lab Data Please see the discussion above <Aiyana Berman MD - Last Filed: 09/26/22 22:43> Result Diagrams: 09/26/22 17:55 09/26/22 17:55 <JAMEL Gomes - Last Filed: 09/28/22 13:09> Labs: Lab Results 09/26/22 09/26/22 09/26/22 Range/Units 17:55 17:55 17:55 WBC 12.4 H (4.8-10.8) X10*3/uL RBC 4.40 D (4.20-5.50) X10*6/uL Hgb 13.4 D (12.0-16.0) g/dl Hct 39.9 D (37.0-47.0) % MCV 90.7 (80.0-98.0) fL MCH 30.5 (27.0-33.0) pg MCHC 33.6 (31.0-35.0) g/dl RDW 12.3 (11.0-16.0) % Plt Count 228 (160-400) X10*3/uL MPV 9.4 (9.4-12.3) fL Immature Gran % (Auto) 1.7 H (0.0-0.4) % Neut % (Auto) 82.8 H (45-73) % Lymph % (Auto) 11.5 L (20-40) % [place] % (Auto) 3.2 (2-11) % Eos % (Auto) 0.2 (0-4) % Baso % (Auto) 0.6 (0-2) % Lymph # (Auto) 1.4 (1.2-4.9) X10*3/uL [place] # (Auto) 0.4 (0.1-1.2) X10*3/uL Eos # (Auto) 0.0 (0.0-0.4) X10*3/uL Baso # (Auto) 0.1 (0.0-0.2) X10*3/uL Abs Immat Gran (auto) 0.21 H (0.00-0.03) X10*3/uL Absolute Neuts (auto) 10.2 H (2.0-8.3) x10*3/uL Absolute Nucleated RBC 0.000 (0.0-0.012) X10*3/uL Nucleated RBC % (auto) 0.0 (0.0-0.2) /100WBC PT 13.8 H (10.0-13.1) SEC INR 1.2 H (0.9-1.1) APTT 29.6 (26.0-36.4) SEC Sodium 142 (135-145) mmol/L Potassium 4.1 (3.3-5.1) mmol/L Chloride 106 (96-108) mmol/L Carbon Dioxide 26 (22-29) mmol/L Anion Gap 14 (12-20) BUN 9 (9-16) mg/dL Creatinine 0.86 (0.5-1.4) mg/dL Estim Creat Clear Calc 84.8 Estimated GFR > 60 Random Glucose 92 (60-115) mg/dL Calcium 9.9 D (8.4-10.2) mg/dL Total Bilirubin 0.5 (0.0-1.0) mg/dL AST 15 (5-31) U/L ALT 9 (0-31) U/L Alkaline Phosphatase 77 (39-117) U/L Total Protein 8.8 H (6.5-8.0) g/dL Albumin 4.2 (3.5-5.0) g/dL Beta HCG, Quant < 2 mIU/mL Urine Color Urine Appearance Urine pH (5.0-9.0) Ur Specific [place] (1.005-1.025) Urine Protein (Neg-Trace) mg/dL Urine Glucose (UA) (Negative) mg/dL Urine Ketones (Negative) mg/dL Urine Blood (Negative) Urine Nitrite (Negative) Ur Leukocyte Esterase (Negative) Urine RBC (0-2) /HPF Urine WBC (0-5) /HPF Ur Squamous Epith Cells (0-2) /HPF Urine Bacteria (None Seen) Hyaline Casts (0-2) /LPF 09/26/22 Range/Units 17:59 WBC (4.8-10.8) X10*3/uL RBC (4.20-5.50) X10*6/uL Hgb (12.0-16.0) g/dl Hct (37.0-47.0) % MCV (80.0-98.0) fL MCH (27.0-33.0) pg MCHC (31.0-35.0) g/dl RDW (11.0-16.0) % Plt Count (160-400) X10*3/uL MPV (9.4-12.3) fL Immature Gran % (Auto) (0.0-0.4) % Neut % (Auto) (45-73) % Lymph % (Auto) (20-40) % [place] % (Auto) (2-11) % Eos % (Auto) (0-4) % Baso % (Auto) (0-2) % Lymph # (Auto) (1.2-4.9) X10*3/uL [place] # (Auto) (0.1-1.2) X10*3/uL Eos # (Auto) (0.0-0.4) X10*3/uL Baso # (Auto) (0.0-0.2) X10*3/uL Abs Immat Gran (auto) (0.00-0.03) X10*3/uL Absolute Neuts (auto) (2.0-8.3) x10*3/uL Absolute Nucleated RBC (0.0-0.012) X10*3/uL Nucleated RBC % (auto) (0.0-0.2) /100WBC PT (10.0-13.1) SEC INR (0.9-1.1) APTT (26.0-36.4) SEC Sodium (135-145) mmol/L Potassium (3.3-5.1) mmol/L Chloride (96-108) mmol/L Carbon Dioxide (22-29) mmol/L Anion Gap (12-20) BUN (9-16) mg/dL Creatinine (0.5-1.4) mg/dL Estim Creat Clear Calc Estimated GFR Random Glucose (60-115) mg/dL Calcium (8.4-10.2) mg/dL Total Bilirubin (0.0-1.0) mg/dL AST (5-31) U/L ALT (0-31) U/L Alkaline Phosphatase (39-117) U/L Total Protein (6.5-8.0) g/dL Albumin (3.5-5.0) g/dL Beta HCG, Quant mIU/mL Urine Color Dark Yellow Urine Appearance Cloudy Urine pH 6.0 (5.0-9.0) Ur Specific [place] >= 1.030 H (1.005-1.025) Urine Protein 30 (1+) H (Neg-Trace) mg/dL Urine Glucose (UA) Negative (Negative) mg/dL Urine Ketones >=160 (Negative) mg/dL Urine Blood Negative (Negative) Urine Nitrite Negative (Negative) Ur Leukocyte Esterase Small (1+) H (Negative) Urine RBC 0-2 (0-2) /HPF Urine WBC 11-20 H (0-5) /HPF Ur Squamous Epith Cells 11-20 (0-2) /HPF Urine Bacteria 4+ (None Seen) Hyaline Casts 0-2 (0-2) /LPF <JAMEL Gomes - Last Filed: 09/28/22 13:09> Lab Results 09/26/22 09/26/22 09/26/22 Range/Units 17:55 17:55 17:55 WBC 12.4 H (4.8-10.8) X10*3/uL RBC 4.40 D (4.20-5.50) X10*6/uL Hgb 13.4 D (12.0-16.0) g/dl Hct 39.9 D (37.0-47.0) % MCV 90.7 (80.0-98.0) fL MCH 30.5 (27.0-33.0) pg MCHC 33.6 (31.0-35.0) g/dl RDW 12.3 (11.0-16.0) % Plt Count 228 (160-400) X10*3/uL MPV 9.4 (9.4-12.3) fL Immature Gran % (Auto) 1.7 H (0.0-0.4) % Neut % (Auto) 82.8 H (45-73) % Lymph % (Auto) 11.5 L (20-40) % [place] % (Auto) 3.2 (2-11) % Eos % (Auto) 0.2 (0-4) % Baso % (Auto) 0.6 (0-2) % Lymph # (Auto) 1.4 (1.2-4.9) X10*3/uL [place] # (Auto) 0.4 (0.1-1.2) X10*3/uL Eos # (Auto) 0.0 (0.0-0.4) X10*3/uL Baso # (Auto) 0.1 (0.0-0.2) X10*3/uL Abs Immat Gran (auto) 0.21 H (0.00-0.03) X10*3/uL Absolute Neuts (auto) 10.2 H (2.0-8.3) x10*3/uL Absolute Nucleated RBC 0.000 (0.0-0.012) X10*3/uL Nucleated RBC % (auto) 0.0 (0.0-0.2) /100WBC PT 13.8 H (10.0-13.1) SEC INR 1.2 H (0.9-1.1) APTT 29.6 (26.0-36.4) SEC Sodium 142 (135-145) mmol/L Potassium 4.1 (3.3-5.1) mmol/L Chloride 106 (96-108) mmol/L Carbon Dioxide 26 (22-29) mmol/L Anion Gap 14 (12-20) BUN 9 (9-16) mg/dL Creatinine 0.86 (0.5-1.4) mg/dL Estim Creat Clear Calc 84.8 Estimated GFR > 60 Random Glucose 92 (60-115) mg/dL Calcium 9.9 D (8.4-10.2) mg/dL Total Bilirubin 0.5 (0.0-1.0) mg/dL AST 15 (5-31) U/L ALT 9 (0-31) U/L Alkaline Phosphatase 77 (39-117) U/L Total Protein 8.8 H (6.5-8.0) g/dL Albumin 4.2 (3.5-5.0) g/dL Beta HCG, Quant < 2 mIU/mL Urine Color Urine Appearance Urine pH (5.0-9.0) Ur Specific [place] (1.005-1.025) Urine Protein (Neg-Trace) mg/dL Urine Glucose (UA) (Negative) mg/dL Urine Ketones (Negative) mg/dL Urine Blood (Negative) Urine Nitrite (Negative) Ur Leukocyte Esterase (Negative) Urine RBC (0-2) /HPF Urine WBC (0-5) /HPF Ur Squamous Epith Cells (0-2) /HPF Urine Bacteria (None Seen) Hyaline Casts (0-2) /LPF 09/26/22 Range/Units 17:59 WBC (4.8-10.8) X10*3/uL RBC (4.20-5.50) X10*6/uL Hgb (12.0-16.0) g/dl Hct (37.0-47.0) % MCV (80.0-98.0) fL MCH (27.0-33.0) pg MCHC (31.0-35.0) g/dl RDW (11.0-16.0) % Plt Count (160-400) X10*3/uL MPV (9.4-12.3) fL Immature Gran % (Auto) (0.0-0.4) % Neut % (Auto) (45-73) % Lymph % (Auto) (20-40) % [place] % (Auto) (2-11) % Eos % (Auto) (0-4) % Baso % (Auto) (0-2) % Lymph # (Auto) (1.2-4.9) X10*3/uL [place] # (Auto) (0.1-1.2) X10*3/uL Eos # (Auto) (0.0-0.4) X10*3/uL Baso # (Auto) (0.0-0.2) X10*3/uL Abs Immat Gran (auto) (0.00-0.03) X10*3/uL Absolute Neuts (auto) (2.0-8.3) x10*3/uL Absolute Nucleated RBC (0.0-0.012) X10*3/uL Nucleated RBC % (auto) (0.0-0.2) /100WBC PT (10.0-13.1) SEC INR (0.9-1.1) APTT (26.0-36.4) SEC Sodium (135-145) mmol/L Potassium (3.3-5.1) mmol/L Chloride (96-108) mmol/L Carbon Dioxide (22-29) mmol/L Anion Gap (12-20) BUN (9-16) mg/dL Creatinine (0.5-1.4) mg/dL Estim Creat Clear Calc Estimated GFR Random Glucose (60-115) mg/dL Calcium (8.4-10.2) mg/dL Total Bilirubin (0.0-1.0) mg/dL AST (5-31) U/L ALT (0-31) U/L Alkaline Phosphatase (39-117) U/L Total Protein (6.5-8.0) g/dL Albumin (3.5-5.0) g/dL Beta HCG, Quant mIU/mL Urine Color Dark Yellow Urine Appearance Cloudy Urine pH 6.0 (5.0-9.0) Ur Specific [place] >= 1.030 H (1.005-1.025) Urine Protein 30 (1+) H (Neg-Trace) mg/dL Urine Glucose (UA) Negative (Negative) mg/dL Urine Ketones >=160 (Negative) mg/dL Urine Blood Negative (Negative) Urine Nitrite Negative (Negative) Ur Leukocyte Esterase Small (1+) H (Negative) Urine RBC 0-2 (0-2) /HPF Urine WBC 11-20 H (0-5) /HPF Ur Squamous Epith Cells 11-20 (0-2) /HPF Urine Bacteria 4+ (None Seen) Hyaline Casts 0-2 (0-2) /LPF <Aiyana Berman MD - Last Filed: 09/26/22 22:43> Radiology Impression Radiologist Impression: My interpretation is in agreement with radiology's impression of the imaging studies. <Aiyana Berman MD - Last Filed: 09/26/22 22:43> External Record Review External record reviewed: Outpatient record and Prior outpatient labs <Aiyana Berman MD - Last Filed: 09/26/22 22:43> Discharge Plan Discharge Clinical Impression: Nausea & vomiting, Abdominal pain <JAMEL Gomes - Last Filed: 09/28/22 13:09> Patient Disposition: Home, Self-Care <JAMEL Gomes - Last Filed: 09/28/22 13:09> Instructions: Acute Nausea and Vomiting (ED), Abdominal Pain (ED) <JAMEL Gomes - Last Filed: 09/28/22 13:09> Additional Instructions: 1. Resume all home medications as prescribed. 2. You have been given a prescription for antinausea medication. 3. Follow-up with your primary care provider. Return to the ER for any worsening symptoms. <JAMEL Gomes - Last Filed: 09/28/22 13:09> Prescriptions: New ondansetron HCl 4 mg tablet 4 mg PO Q8H PRN (Reason: nausea and vomiting) 4 Days Qty: 10 0RF No Action cefuroxime axetil 250 mg tablet 250 mg PO BID 7 Days Qty: 14 0RF ibuprofen 600 mg tablet 600 mg PO Q6H PRN (Reason: fever or pain) Qty: 30 0RF morphine 15 mg tablet 15 mg PO Q4-6H PRN (Reason: pain) Qty: 14 0RF Rx Instructions: Patient may request partial fill; Partial Fill upon patient request. <JAMEL Gomes - Last Filed: 09/28/22 13:09> Interventions: ED Discharge Assessment Last Done: 09/26/22 23:00 <JAMEL Gomes - Last Filed: 09/28/22 13:09> Discharge Date/Time: 09/26/22 23:03 <JAMEL Gomes - Last Filed: 09/28/22 13:09>
[2022-09-26 18:03] LABS: MANUAL DIFF FLAG NO
[2022-09-26 18:05] LABS: Appearance Urine Cloudy; Color Urine Dark Yellow; Glucose Urine UA Negative (Negative); Leukocyte Esterase Urine Small (1+) (Negative); Nitrite Urine Negative (Negative); Specific Gravity - Urine >= 1.030 (1.005-1.025); UMIC TRIGGER UACC YES; Urine Blood Negative (Negative); Urine Ketones >=160 mg/dL (Negative); Urine Protein 30 (1+) mg/dL (Neg-Trace)
[2022-09-26 18:08] LABS: Basophils Absolute Auto 0.1 X10*3/uL (0.0-0.2); Basophils Percent Auto 0.6 % (0-2); Eosinophils Percent Auto 0.2 % (0-4); Hematocrit 39.9 % (37.0-47.0); Hemoglobin 13.4 g/dl (12.0-16.0); Imm Gran Abs Auto 0.21 X10*3/uL (0.00-0.03); Imm Gran Pct Auto 1.7 % (0.0-0.4); Lymphocytes Absolute Auto 1.4 X10*3/uL (1.2-4.9); Lymphocytes Percent Auto 11.5 % (20-40); Mean Corpuscular HGB Conc 33.6 g/dl (31.0-35.0); Mean Corpuscular Hemoglobin 30.5 pg (27.0-33.0); Mean Corpuscular Volume 90.7 fL (80.0-98.0); Mean Platelet Volume 9.4 fL (9.4-12.3); Monocytes Absolute Auto 0.4 X10*3/uL (0.1-1.2); Monocytes Percent Auto 3.2 % (2-11); Neutrophils Absolute Auto 10.2 x10*3/uL (2.0-8.3); Neutrophils Percent Auto 82.8 % (45-73); Platelet Count 228 X10*3/uL (160-400); Red Cell Distribution Width 12.3 % (11.0-16.0); White Blood Count 12.4 X10*3/uL (4.8-10.8)
[2022-09-26 18:09] LABS: INTERNATIONAL NORM RATIO 1.2 (0.9-1.1); Prothrombin Time 13.8 SEC (10.0-13.1)
[2022-09-26 18:10] LABS: Bacteria Urine 4+ (None Seen); Hyaline Casts Urine 0-2 /LPF (0-2); RBC Urine 0-2 /HPF (0-2); UACC Culture Trigger YES
[2022-09-26 18:12] LABS: Partial Thromboplastin Time 29.6 SEC (26.0-36.4)
[2022-09-26 18:30] LABS: Alanine Aminotransferase 9 U/L (0-31); Albumin Level 4.2 g/dL (3.5-5.0); Alkaline Phosphatase 77 U/L (39-117); Anion Gap 14 (12-20); Aspartate Amino Transferase 15 U/L (5-31); Bilirubin Total 0.5 mg/dL (0.0-1.0); Blood Urea Nitrogen 9 mg/dL (9-16); Calcium 9.9 mg/dL (8.4-10.2); Carbon Dioxide 26 mmol/L (22-29); Chloride 106 mmol/L (96-108); Creatinine Clr Calc Pharmacy 84.8; Estimated Glomerular Filt Rate > 60; Glucose Random 92 mg/dL (60-115); HCG Quantitative < 2 mIU/mL; Potassium 4.1 mmol/L (3.3-5.1); Sodium 142 mmol/L (135-145); Total Protein 8.8 g/dL (6.5-8.0)
--- NOTE | 2022-09-26 20:44 | PC.NURSE ---
Patient resting on stretcher on her side. Patient stating this is one of the positions she feels comfortable in. Awaiting ED provider at this time.
[2022-09-26] MEDS: Ondansetron ODT 4 MG TAB.RAPDIS TRANSLINGU (21:35)
[2022-09-26 22:01] VITALS: BP 118/76; PULSE 64; RESP 16; TEMP 36.8; O2SAT 97
--- NOTE | 2022-09-26 22:53 | MHC.EDTECH ---
P.O challenge tolerated well
== END 2022-09-26 23:03 | disposition home or self-care (01) ==
PROVIDERS: Physician Assistant; Emergency Provider Student in an Organized Health Care Education/Training Program
DX: R10.32 Left lower quadrant pain (principal); R11.2 Nausea with vomiting, unspecified; R10.2 Pelvic and perineal pain; Z79.899 Other long term (current) drug therapy
CPT/HCPCS: 36415; 76830; 76856; 80053; 81001; 84702; 85025; 85610; 85730; 87086; 93975; 99284